=== PATIENT | male | born 1940 | race Caucasian/White ===

== ENCOUNTER 2018-12-04 09:45 | Day surgery (SDC) | payer OTHER ==
--- OUTSIDE RECORDS SUMMARY | 2018-12-04 09:56 | XMS REPORT | Continuity of Care Document ---
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 Congestive heart Active Problem 01/27/2017 [facility] COPD Active Problem 01/27/2017 [facility] Hyperlipidemia Active Problem 01/27/2017 [facility] HLD (<span Resolved Problem 01/27/2017 ID="[id number]" [facility],M >Confirmed</span> H [place] ) [facility] Hypertension Active Problem 01/27/2017 [facility] HTN (<span Active Problem 01/27/2017 ID="[id number]" [facility],M >Confirmed</span> H [place] ) [facility] Asbestosis Resolved Problem 01/27/2017 [facility] Emphysema lung Resolved Problem 01/27/2017 [facility] Shortness of Active Problem 01/27/2017 [facility] breath [facility] TIA Active Problem 01/27/2017 [facility] TIA (<span Resolved Problem 01/27/2017 ID="[id number]" [facility],M >Confirmed</span> H [place] ) [facility] NONRHEUMATIC Active [facility] AORTIC (VALVE) Medical STENOSIS Center Medications Medication Details Route Status Patient Ordering Order Source Instructions Provider Date Losartan 100 mg, 2 tab, Inactive 01/08/ [facility] Route: PO, Drug 2017 Medical form: TAB, Center Bedtime, Dosing Weight 102.727, kg, Start date: 01/07/17 21:00:00 CDT, Duration: 30 day, Stop date: 02/05/17 21:00:00 CDTNotes: (Same as: Miryam) 24 HR Nifedipine 30 mg, 1 tab, Inactive [place] 30 MG Extended Route: PO, Drug 2016 Medical Release Tablet form: ERTAB, Center Daily-12N, Dosing Weight 102.727, kg, Start date: 01/07/17 12:00:00 CDT, Duration: 30 day, Stop date: 02/05/17 12:00:00 CDT, ..Notes: (Same as: Adalat CC, Procardia XL) Give on empty stomach. Take 1 hour before or 2 hours after meal; "Avoid grapefruit and grapefruit juice". Do not crush 24 HR Nifedipine 30 mg=1 tab, Active [place] 30 MG Extended PO, Daily-12N, 2017 Medical Release Tablet .., # 30 tab, 1 Center Refill(s) predniSONE 5 mg 5 mg=1 tab, PO, Active [facility] oral tablet Daily, # 30 2017 Medical tab, 0 Center Refill(s) losartan 50 mg 100 mg=2 tab, Active [facility] oral tablet PO, Bedtime, # 2017 Medical 60 tab, 1 Center Refill(s) Furosemide 40 MG 40 mg=1 tab, Active [facility] Oral Tablet PO, BID, # 60 2017 Medical [Lasix] tab, 1 Center Refill(s) carvedilol 25 mg 25 mg=1 tab, Active [facility] oral tablet PO, Q12H, # 60 2017 Medical tab, 1 Center Refill(s) Potassium 20 mEq=1 tab, Active [place] Chloride 20 MEQ PO, Daily, # 30 2017 Medical Extended Release tab, 0 Center Tablet [K-Tab] Refill(s) Cardiac See Active [facility] Rehabilitation Instructions, 2017 Medical 3-5 x per week Center Eval and treat s/p TAVR, # 1 appl, 0 Refill(s) Cardiac See Inactive [facility] Rehabilitation Instructions, 2017 Medical 3-5 x per week Center Eval and treat s/p TAVR, # 1 appl, 0 Refill(s) Coreg 25 mg, 1 tab, Inactive [place] Route: PO, Drug 2017 Medical form: TAB, Center Q12H, Dosing Weight 102.727, kg, Start date: 01/07/17 9:00:00 CDT, Duration: 30 day, Stop date: 02/05/17 21:00:00 CDTNotes: Give with food. (Same As: Coreg) Prednisone 5 mg, 1 tab, Inactive [facility] Route: PO, Drug 2017 Medical form: TAB, Center Daily, Dosing Weight 102.727, kg, Start date: 01/07/17 9:00:00 CDT, Duration: 30 day, Stop date: 02/05/17 9:00:00 CDTNotes: Take with food. Furosemide 40 MG 40 mg, 1 tab, Inactive [facility] Oral Tablet Route: PO, Drug 2017 Medical [Lasix] form: TAB, BID, Center Dosing Weight 102.727, kg, Start date: 01/07/17 9:00:00 CDT, Duration: 30 day, Stop date: 02/05/17 17:00:00 CDTNotes: (Same as: Lasix) May cause GI upset. Give with food or milk. Coreg 12.5 mg, Route: Inactive [place] PO, ONCE, 2017 Medical Dosing Weight [place] 102.727, kg, Start date: 01/06/17 20:30:00 CDT, Stop date: 01/06/17 20:30:00 CDT 24 HR Nifedipine 90 mg, 1 tab, Inactive [place] 90 MG Extended Route: PO, Drug 2017 Medical Release Tablet form: ERTAB, Center ONCE, Dosing Weight 102.727, kg, Start date: 01/06/17 18:05:00 CDT, Stop date: 01/06/17 18:05:00 CDTNotes: (Same as: Adalat CC,Procardia XL) "Do Not Crush" "Avoid grapefruit and grapefruit juice" 24 HR Nifedipine 90 mg, 1 tab, No Longer [place] 90 MG Extended Route: PO, Drug Active 2017 Medical Release Tablet form: ERTAB, Center Daily, Dosing Weight 102.727, kg, Start date: 01/06/17 9:00:00 CDT, Duration: 30 day, Stop date: 02/04/17 9:00:00 CDTNotes: (Same as: Adalat CC,Procardia XL) "Do Not Crush" "Avoid grapefruit and grapefruit juice" Hydralazine 25 mg, 1 tab, Inactive [place] Hydrochloride 25 Route: PO, Drug 2017 Medical MG Oral Tablet form: TAB, Center ONCE, Dosing Weight 102.727, kg, Start date: 01/06/17 2:35:00 CDT, Stop date: 01/06/17 2:35:00 CDTNotes: (Same as: Apresoline) May interfere w/enteral feedings Take With Food. Losartan 50 mg, 1 tab, No Longer [place] Route: PO, Drug Active 2016 Medical form: TAB, Center ONCE, Dosing Weight 102.727, kg, Start date: 01/05/17 23:02:00 CDT, Stop date: 01/05/17 23:02:00 CDTNotes: (Same as: Miryam) furosemide 80 mg 80 mg=1 tab, No Longer [facility] oral tablet PO, BID, 0 Active 2016 Medical Refill(s) [place] bacitracin-polym 1 appl, Route: Inactive [facility] yxin B topical TOP, ONCE, Drug 2016 Medical form: OINT, [place] Start date: 01/05/17 17:00:00 CDT, Stop date: 01/05/17 17:00:00 CDTNotes: (Same As: Polysporin) Lasix 40 mg, 4 mL, No Longer [facility] Route: IV, Drug Active 2016 Medical form: INJ, BID, Center Dosing Weight 102.727, kg, Start date: 01/05/17 17:00:00 CDT, Duration: 30 day, Stop date: 02/04/17 9:00:00 CDTNotes: (Same as: Lasix) MEDICATION WASTE Product Size: 40 mg Product Wasted: ___ mg Neosporin 1 appl, Route: Inactive [facility] TOP, ONCE, Drug 2016 Medical form: OINT, Center Start date: 01/05/17 16:43:00 CDT, Stop date: 01/05/17 16:43:00 CDT Savaysa 30 mg, 1 tab, No Longer [place] Route: PO, Drug Active 2016 Medical form: TAB, Center Daily, Dosing Weight 102.727, kg, Start date: 01/05/17 12:53:00 CDT, Duration: 30 day, Stop date: 02/04/17 9:00:00 CDT, Patient's Own Meds Amlodipine 10 mg, 1 tab, No Longer [place] Route: PO, Drug Active 2016 Medical form: TAB, Center Daily, Dosing Weight 102.727, kg, Start date: 01/05/17 9:00:00 CDT, Duration: 30 day, Stop date: 02/03/17 9:00:00 CDTNotes: (Same as: Norvasc) Prednisone 10 mg, 1 tab, No Longer [place] Route: PO, Drug Active 2016 Medical form: TAB, Center Daily, Dosing Weight 102.727, kg, Start date: 01/05/17 9:00:00 CDT, Duration: 30 day, Stop date: 02/03/17 9:00:00 CDTNotes: (Same as: PredniSONE) Take with food. Lasix 20 mg, 2 mL, No Longer [place] Route: IV, Drug Active 2016 Medical form: INJ, BID, Center Dosing Weight 102.727, kg, Start date: 01/04/17 17:00:00 CDT, Duration: 30 day, Stop date: 02/03/17 9:00:00 CDTNotes: (Same as: Lasix) Calcium 2 gm, 20 mL, No Longer [place] Gluconate Route: IVPB, Active 2016 Medical PRN, Dosing Center Weight 102.727, kg, PRN Abnormal Lab Result, For NON-ICU Patients Only., Start date: 01/04/17 13:51:00 CDT, Duration: 30 day, Stop date: 02/03/17 13:50:00 CDTNotes: WASTE: F/P - Sink; E - Municipal Trash Bin Magnesium Oxide 800 mg, 2 tab, No Longer [place] Route: PO, Drug Active 2016 Medical form: TAB, PRN, Center Dosing Weight 102.727, kg, PRN Abnormal Lab Result, For NON-ICU Patients Only., Start date: 01/04/17 13:51:00 CDT, Duration: 30 day, Stop date: 02/03/17 13:50:00 CDTNotes: (Same as: Mag-Ox 400) Magnesium oxide [id number] elemental magnesium Dose=____mg magnesium oxide (___mg elemental magnesium) Magnesium 2 gm, 50 mL, No Longer [place] Sulfate Route: IVPB, Active 2016 Medical Drug form: INJ, Center PRN, Dosing Weight 102.727, kg, PRN Abnormal Lab Result, For NON-ICU Patients Only., Start date: 01/04/17 13:51:00 CDT, Duration: 30 day, Stop date: 02/03/17 13:50:00 CDTNotes: WASTE: F/P - Sink; E - Municipal Trash Bin sodium phosphate 30 mmol, 10 mL, No Longer [place] + sodium Route: IVPB, Active 2016 Medical chloride 0.9% PRN, Dosing Center INJ 250 mL Weight 102.727, kg, PRN Abnormal Lab Result, For NON-ICU Patients Only., Start date: 01/04/17 13:51:00 CDT, Duration: 30 day, Stop date: 02/03/17 13:50:00 CDT potassium 30 mmol, 10 mL, No Longer [place] phosphate + Route: IVPB, Active 2016 Medical sodium chloride PRN, Dosing Center 0.9% INJ 250 mL Weight 102.727, kg, PRN Abnormal Lab Result, For NON-ICU Patients Only., Start date: 01/04/17 13:51:00 CDT, Duration: 30 day, Stop date: 02/03/17 13:50:00 CDTNotes: (Same as: K Phosphate.) 1 mMol phoshate has 1.47 mEq potassium Infuse over 4 hours potassium 2 pkt, Route: No Longer [place] phosphate-sodium PO, Drug Form: Active 2016 Medical phosphate 250 PDR/REC, Dosing Center mg-280 mg-160 mg Weight 102.727, oral powder for kg, PRN, PRN reconstitution Abnormal Lab Result, For NON-ICU Patients Only, Start date: 01/04/17 13:51:00 CDT, Duration: 30 day, Stop date: 02/03/17 13:50:00 CDTNotes: (Same as: Phos-NaK) Each 1.5 gm pkt has 250mg phosphorous. Mix w/2.5oz water and stir. potassium 10 mEq, 50 mL, No Longer [place] chloride Route: IVPB, Active 2017 Medical Drug form: INJ, Center PRN, Dosing Weight 102.727, kg, PRN Abnormal Lab Result, For NON-ICU Patients Only, Start date: 01/04/17 13:51:00 CDT, Duration: 30 day, Stop date: 02/03/17 13:50:00 CDTNotes: (Same as: KCL) Infuse over 2 hours. edoxaban 30 mg, Route: Inactive [place] PO, Drug form: 2017 Medical TAB, Daily, Center Dosing Weight 102.727, kg, CrCl 15-50 mL/min, Start date: 01/04/17 13:32:00 CDT, Duration: 30 day, Stop date: 02/03/17 9:00:00 CDT Amlodipine 5 mg, 1 tab, Inactive [place] Route: PO, Drug 2016 Medical form: TAB, Center ONCE, Dosing Weight 102.727, kg, Start date: 01/04/17 11:17:00 CDT, Stop date: 01/04/17 11:17:00 CDTNotes: (Same as: Norvasc) Lasix 20 mg, 2 mL, Inactive [place] Route: IV, Drug 2016 Medical form: INJ, Center Daily, Dosing Weight 102.727, kg, Priority: NOW, Start date: 01/04/17 10:02:00 CDT, Duration: 30 day, Stop date: 02/03/17 9:00:00 CDTNotes: (Same as: Lasix) Lasix 20 mg, 2 mL, Inactive [place] Route: IVP, 2017 Medical Drug form: INJ, Center ONCE, Dosing Weight 102.727, kg, Start date: 01/04/17 9:43:00 CDT, Stop date: 01/04/17 9:43:00 CDTNotes: (Same as: Lasix) Furosemide 40 MG 40 mg, 1 tab, Inactive [place] Oral Tablet Route: PO, Drug 2016 Medical [Lasix] form: TAB, BID, Center Dosing Weight 102.727, kg, Start date: 01/04/17 9:00:00 CDT, Duration: 30 day, Stop date: 02/02/17 17:00:00 CDTNotes: (Same as: Lasix) May cause GI upset. Give with food or milk. Symbicort 2 inhalation, No Longer [facility] 160/4.5 Route: Active 2016 Medical inhalation INHALATION, [place] aerosol with Drug Form: adapter AERO/A, Dosing Weight 102.727, kg, BID, Start date: 01/04/17 9:00:00 CDT, Duration: 30 day, Stop date: 02/02/17 17:00:00 CDTNotes: (Same as: Symbicort) WASTE: Aerosol - Return to Pharmacy Prednisone 20 mg, 1 tab, Inactive [place] Route: PO, Drug 2016 Medical form: TAB, Center Daily, Dosing Weight 102.727, kg, Start date: 01/04/17 9:00:00 CDT, Duration: 30 day, Stop date: 02/02/17 9:00:00 CDTNotes: Take with food. pantoprazole 40 mg, 1 tab, No Longer [facility] Route: PO, Drug Active 2016 Medical form: ECTAB, Center Daily, Dosing Weight 102.727, kg, Start date: 01/04/17 9:00:00 CDT, Duration: 30 day, Stop date: 02/02/17 9:00:00 CDTNotes: Tablet should not be chewed or crushed. (Same as: Protonix) POLYETHYLENE 17 gm, 1 pkt, No Longer [place] GLYCOL 3350 Route: PO, Drug Active 2016 Medical form: PWDR, Center Daily, Dosing Weight 102.727, kg, Start date: 01/04/17 9:00:00 CDT, Duration: 30 day, Stop date: 02/02/17 9:00:00 CDTNotes: Dissolve in 8 oz of water or juice. (Same as: Miralax) aspirin 81 mg 81 mg, 1 tab, No Longer [place] tablet, enteric Route: PO, Drug Active 2016 Medical coated form: ECTAB, Center Daily, Dosing Weight 102.727, kg, Start date: 01/04/17 9:00:00 CDT, Duration: 30 day, Stop date: 02/02/17 9:00:00 CDTNotes: Do not crush or chew. (Same As: Ecotrin) Folic Acid 1 mg, 1 tab, Inactive [place] Route: PO, Drug 2016 Medical form: TAB, Center Daily, Dosing Weight 102.727, kg, Start date: 01/04/17 9:00:00 CDT, Duration: 5 day, Stop date: 01/08/17 9:00:00 CDTNotes: (Same as: Folvite) Thiamine 100 mg, 1 tab, Inactive [place] Route: PO, Drug 2016 Medical form: TAB, Center Daily, Dosing Weight 102.727, kg, Start date: 01/04/17 9:00:00 CDT, Duration: 5 day, Stop date: 01/08/17 9:00:00 CDTNotes: (Same As: Vitamin B1) multivitamin 1 tab, Route: Inactive [place] PO, Drug Form: 2017 Medical TAB, Dosing Center Weight 102.727, kg, Daily, Start date: 01/04/17 9:00:00 CDT, Duration: 5 day, Stop date: 01/08/17 9:00:00 CDTNotes: (Same as:Thera) WASTE: F/P - Black; E - Municipal Trash Bin Take with food. Benicar 40 mg, 2 tab, No Longer [place] Route: PO, Drug Active 2016 Medical form: TAB, Center Daily, Dosing Weight 102.727, kg, Start date: 01/04/17 9:00:00 CDT, Duration: 30 day, Stop date: 02/02/17 9:00:00 CDT Amlodipine 5 mg, 1 tab, Inactive [place] Route: PO, Drug 2016 Medical form: TAB, Center Daily, Dosing Weight 102.727, kg, Start date: 01/04/17 9:00:00 CDT, Duration: 30 day, Stop date: 02/02/17 9:00:00 CDTNotes: (Same as: Norvasc) Plavix 75 mg, 1 tab, Inactive [place] Route: PO, Drug 2016 Medical form: TAB, Center Daily, Dosing Weight 102.727, kg, Start date: 01/04/17 9:00:00 CDT, Duration: 30 day, Stop date: 02/02/17 9:00:00 CDTNotes: (Same As: Plavix) Losartan 50 mg, 1 tab, No Longer [place] Route: PO, Drug Active 2016 Medical form: TAB, Center Daily, Dosing Weight 102.727, kg, Start date: 01/04/17 9:00:00 CDT, Duration: 30 day, Stop date: 02/02/17 9:00:00 CDTNotes: (Same as: Miryam) Cefazolin 1 gm, Route: Inactive [place] IVPB, Drug 2016 Medical form: PDR/INJ, Center Q12H, Dosing Weight 102.727, kg, Start date: 01/04/17 0:00:00 CDT, Duration: 1 doses or times, Stop date: 01/04/17 0:00:00 CDT, ABX Indication: Surgical ProphylaxisNote s: (Same As: Jada Chandler) MEDICATION WASTE Product Size: 1000 mg Product Wasted: _0_ mg carvedilol 12.5 mg, 1 tab, No Longer [place] Route: PO, Drug Active 2016 Medical form: TAB, Center Q12H, Dosing Weight 102.727, kg, Start date: 01/03/17 21:00:00 CDT, Duration: 30 day, Stop date: 02/02/17 9:00:00 CDTNotes: Give with food. (Same As: Coreg) atorvastatin 80 mg, 1 tab, No Longer [place] Route: PO, Drug Active 2016 Medical form: TAB, Center Bedtime, Dosing Weight 102.727, kg, Start date: 01/03/17 21:00:00 CDT, Duration: 30 day, Stop date: 02/01/17 21:00:00 CDTNotes: Same as Lipitor Docusate 100 mg, 1 cap, No Longer [place] Route: PO, Drug Active 2016 Medical form: CAP, Center Q12H, Dosing Weight 102.727, kg, Start date: 01/03/17 21:00:00 CDT, Duration: 30 day, Stop date: 02/02/17 9:00:00 CDTNotes: (Same as: Colace) (Do Not Crush) heparin 5,000 unit, 1 No Longer [place] mL, Route: Active 2017 Medical SUB-Q, Drug Center form: INJ, Q12H, Dosing Weight 102.727, kg, Start date: 01/03/17 21:00:00 CDT, Duration: 30 day, Stop date: 02/02/17 9:00:00 CDTNotes: porcine heparin Escitalopram 20 mg, 2 tab, No Longer [place] Route: PO, Drug Active 2016 Medical form: TAB, Center Bedtime, Dosing Weight 102.727, kg, Start date: 01/03/17 21:00:00 CDT, Duration: 30 day, Stop date: 02/01/17 21:00:00 CDTNotes: (Same as: Lexapro) Lorazepam 6 mg, 3 mL, No Longer [place] Route: IVP, Active 2016 Medical Drug form: INJ, Center Q2H, Dosing Weight 102.727, kg, PRN Other -See Comment, CIWA Score > 20, Start date: 01/03/17 20:15:00 CDT, Duration: 30 day, Stop date: 02/02/17 20:14:00 CDTNotes: (Same as: Ativan) Losartan 100 mg, 2 tab, No Longer [place] Route: PO, Drug Active 2016 Medical form: TAB, Center Daily, Dosing Weight 102.727, kg, Start date: 01/03/17 19:29:00 CDT, Stop date: 02/02/17 9:00:00 CDTNotes: (Same as: Cozaar) Lasix 40 mg, 4 mL, Inactive [place] Route: IVP, 2016 Medical Drug form: INJ, Center ONCE, Dosing Weight 102.727, kg, Start date: 01/03/17 19:00:00 CDT, Stop date: 01/03/17 19:00:00 CDTNotes: (Same as: Lasix) MEDICATION WASTE Product Size: 40 mg Product Wasted: __0_ mg potassium 2 pkt, Route: No Longer [place] phosphate-sodium PO, Drug Form: Active 2017 Medical phosphate 250 PDR/REC, Dosing Center mg-280 mg-160 mg Weight 102.727, oral powder for kg, PRN, PRN reconstitution Abnormal Lab Result, FOR ICU USE ONLY, Start date: 01/03/17 17:41:00 CDT, Duration: 30 day, Stop date: 02/02/17 17:40:00 CDTNotes: (Same as: Phos-NaK) Each 1.5 gm pkt has 250mg phosphorous. Mix w/2.5oz water and stir. Magnesium Oxide 800 mg, 2 tab, No Longer [place] Route: PO, Drug Active 2016 Medical form: TAB, PRN, Center Dosing Weight 102.727, kg, PRN Abnormal Lab Result, FOR ICU USE ONLY, Start date: 01/03/17 17:41:00 CDT, Duration: 30 day, Stop date: 02/02/17 17:40:00 CDTNotes: (Same as: Mag-Ox 400) Magnesium oxide [id number] elemental magnesium Dose=____mg magnesium oxide (___mg elemental magnesium) Calcium 500 mg, 1 tab, No Longer [place] Carbonate 500 MG Route: PO, Drug Active 2016 Medical Chewable Tablet form: CHEWTAB, Center PRN, Dosing Weight 102.727, kg, PRN Abnormal Lab Result, FOR ICU USE ONLY, Start date: 01/03/17 17:41:00 CDT, Duration: 30 day, Stop date: 02/02/17 17:40:00 CDTNotes: (Same As: Tums) Calcium Carbonate 500 rs=084 mg elemental calcium Dose= mg calcium carbonate ( mg elemental calcium) Magnesium 2 gm, 50 mL, No Longer [place] Sulfate Route: IVPB, Active 2016 Medical Drug form: INJ, Center PRN, Dosing Weight 102.727, kg, PRN Abnormal Lab Result, Start date: 01/03/17 17:41:00 CDT, Duration: 30 day, Stop date: 02/02/17 17:40:00 CDT, FOR ICU USE ONLYNotes: WASTE: F/P - Sink; E - Municipal Trash Bin potassium 30 mmol, 10 mL, No Longer [place] phosphate + Route: IVPB, Active 2016 Medical sodium chloride PRN, Dosing Center 0.9% INJ 250 mL Weight 102.727, kg, PRN Abnormal Lab Result, Start date: 01/03/17 17:41:00 CDT, Duration: 30 day, Stop date: 02/02/17 17:40:00 CDT, FOR ICU USE ONLYNotes: (Same as: K Phosphate.) 1 mMol phoshate has 1.47 mEq potassium Infuse over 4 hours sodium phosphate 45 mmol, 15 mL, No Longer [place] + sodium Route: IVPB, Active 2016 Medical chloride 0.9% PRN, Dosing Center INJ 250 mL Weight 102.727, kg, PRN Abnormal Lab Result, Start date: 01/03/17 17:41:00 CDT, Duration: 30 day, Stop date: 02/02/17 17:40:00 CDT, FOR ICU USE ONLY Calcium 1 gm, 10 mL, No Longer Glucon[place] Route: IVPB, Active 2016 Medical PRN, Dosing Center Weight 102.727, kg, PRN Abnormal Lab Result, Start date: 01/03/17 17:41:00 CDT, Duration: 30 day, Stop date: 02/02/17 17:40:00 CDT, FOR ICU USE ONLYNotes: WASTE: F/P - Sink; E - Municipal Trash Bin potassium 10 mEq, 50 mL, No Longer [place] chloride Route: IVPB, Active 2016 Medical Drug form: INJ, Center PRN, Dosing Weight 102.727, kg, PRN Abnormal Lab Result, Via peripheral line, Start date: 01/03/17 17:41:00 CDT, Duration: 30 day, Stop date: 02/02/17 17:40:00 CDT, FOR ICU USE ONLYNotes: (Same as: KCL) Infuse over 2 hours. Acetaminophen 1,000 mg, 100 No Longer [place] mL, Route: Active 2016 Medical IVPB, Drug Center form: INJ, ONCE, Dosing Weight 102.727, kg, PRN Pain Score 1-3, Start date: 01/03/17 13:49:00 CDTNotes: Infuse over 15 minutes Do not exceed 4gm/day of acetaminophen MEDICATION WASTE Product Size: 1000 mg Product Wasted: _0_ mg Nicardipine 40 mg, 200 mL, No Longer [place] Rate: Titrate, Active 2016 Medical Start Dose: 5 Center mg/hr, Titration: 2mg every 15 minutes PRN, Goal(s): maintain MAP 75-85 mmHg, Max Dose: 15mg/hr, Route: IV, Dosing Weight 102.727 kg, Total Volume: 200, Start date: 01/03/17 13:49:00 CDT, Duration: 30 day, S...Notes: Same as: Cardene Concentration: (0.2 mg /1 ml ) Ondansetron 4 mg, 2 mL, No Longer [place] Route: IVP, Active 2016 Medical Drug form: INJ, Center Q8H, Dosing Weight 102.727, kg, PRN Nausea & Vomiting, Start date: 01/03/17 13:49:00 CDT, Duration: 30 day, Stop date: 02/02/17 13:48:00 CDTNotes: (Same as: Zofrnelly) MEDICATION WASTE Product Size: 4 mg Product Wasted: _0_ mg pneumococcal 0.5 mL, Route: Inactive [place] capsular IM, Daily, 2017 Medical polysaccharide Start date: [place] type 1 vaccine / 01/03/17 pneumococcal 9:00:00 CDT, capsular Duration: 1 polysaccharide doses or times, type 10A vaccine Stop date: / pneumococcal 01/03/17 capsular 9:00:00 CDT polysaccharide type 11A vaccine / pneumococcal capsular polysaccharide type 12F vaccine / pneumococcal capsular polysacchar K-Amber 20 mEq, PO, No Longer [place] BID, 0 Active 2016 Medical Refill(s) [place] carvedilol 12.5 12.5 mg=1 tab, No Longer [place] mg oral tablet PO, Q12H, # 60 Active 2016 Medical tab, 0 Center Refill(s) atorvastatin 80 80 mg=1 tab, Active [place] mg oral tablet PO, Bedtime, # 2017 Medical 30 tab, 0 Center Refill(s) Savaysa 30 mg, PO, Active [facility] Daily, 0 2016 Medical Refill(s) Center Symbicort 2 puff, Active [facility] 160/4.5 INHALATION, 2017 Medical inhalation BID, 0 Center aerosol with Refill(s) adapter predniSONE 20 mg 20 mg=1 tab, No Longer [facility] oral tablet PO, Daily, 0 Active 2016 Medical Refill(s) Center Omeprazole PO, Daily, 0 No Longer [facility] Refill(s) Active 2017 [facility] Center Lovaza 2,000 mg=, PO, Active [facility] BID, 0 2016 Medical Refill(s) Center losartan 50 mg 50 mg=1 tab, No Longer [facility] oral tablet PO, Daily, # 30 Active 2016 Medical tab, 0 Center Refill(s) Sodium Chloride 250 mL, 250 Inactive [facility] 0.154 MEQ/ML ml/hr, Infuse 2017 Medical Injectable Over: 1 hr, Center Solution Route: IV, 250, Drug form: INJ, ONCALL, Priority: Routine, Dosing Weight 100 kg, Start date: 01/03/17 6:00:00 CDT, Duration: 1 doses or times Exparel 20 mL, Route: No Longer [facility] InFILtration(lo Active 2016 Medical jakob), Drug Center Form: INJ, Dosing Weight 100, kg, ONCALL, 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 Bunionectomy: 7 mL into the tissues surrounding the osteotomy and 1 mL into the subcutaneous tissue of the surgical site (total dose=8 mL [106 mg]) Hemorrhoidectom y: 30 mL (20 mL vial diluted with 10 mL NS) divided and administered as 6 injections of 5 mL each (total dose=30 mL [266 mg]) sodium chloride 250 mL, Rate: Inactive [facility]03[facility] Ji 0.9% INJ 250 mL freight caller for use 2017 Medical with blood Center product administration, Dosing Weight 100, kg, Route: IV, Total Volume: 250, Start Date: 01/03/17 5:51:00 CDT, Duration: 30 day, Stop date: 02/02/17 5:50:00 CDT, Replace Every: 24 hr Sodium Chloride 750 mL, Rate: Inactive [place] 0.154 MEQ/ML 75 ml/hr, 2016 Medical Injectable Infuse over: 10 Center Solution hr, Route: IV, Dosing Weight 100 kg, Total Volume: 750, Start date: 01/03/17 5:51:00 CDT, Duration: 24 hr, Stop date: 01/04/17 5:50:00 CDT Allergies, Adverse Reactions, Alerts Substance Category Reaction Severity Reaction Status Date Comments Source type Reported amitriptyline Assertion Drug Active allergy [facility] Immunizations Immunization Date Site Status Last Comments Source Given Updated pneumococcal Right completed Shae [facility] 23-valent 9 deltoid Medical vaccine Center,[facility] Results Order Name Results Value Reference Date Interpretation Comments Source Range PET CT PET CT Lung PET CT 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 The CT was utili Read by: Isaiah Jc MD for attenuation correction and anatomic correlation and not as an independent diagnostic study. Dictated Date/time: 01/24/17 14:40 Electronically Signed by: Isaiah Jc MD 01/24/17 15:04 FINAL REPORT BLOOD GLUCOSE: 107 mg/dl COMPARISON: CTA chest 12/17/2016 CLINICAL HISTORY: C34.12 Malignant neoplasm of upper lobe, left bronchus or lung - YLX=2578.64 mGy-cm, CTDIvol=12.59 mGy; FINDINGS: HEAD AND NECK: Evaluation of the oral cavity and oropharynx is limited due to streak artifact from dental work. There is mild cervical lymphadenopathy on the right just above the right angle of mandible . Maximum SUV is 3.7 on image 40. No other enlarged or FDG avid lymph nodes are noted in the neck. CHEST: Multiple subcentimeter lymph nodes are visualized in the anterior mediastinum without any significant increase in metabolic activity. Mild right hilar lymphadenopathy. Mild increase in FDG activity with maximum SUV of 3.0 on image 88. Corresponding to the 10 mm nodule in the left upper lobe, no significant increase in metabolic activity is noted. Maximum SUV is 1.6 on image 82. No other focus of abnormal activity is noted in the thorax. Cardiomegaly. ABDOMEN AND PELVIS: Extensive aortoiliac atherosclerotic disease with ectasia and mild aneurysmal dilation. Maximum caliber in the infrarenal abdominal aorta is 3.1 cm. Physiologic activity is visualize d in the solid organs, genitourinary tract and gastrointestinal tract. A few small lymph nodes and stranding of the mesenteric fat is noted in the right inguinal region. Maximum SUV is 4.0 on image 225. SKELETON: No abnormal activity is visualized IMPRESSION: No significant abnormal increase in metabolic activity is noted corresponding to the left upper lobe nodule. However, given the morphology of this lesion, unless previous imaging can be made available [facility] document stability of this finding, biopsy may still be appropriate. At a minimum, repeat CT scan of chest is recommended in 3 months. There is mild right cervical lymphadenopathy. Mild right hilar lymphadenopathy and a few small FDG avid lymph nodes are noted in the right groin. These findings are somewhat nonspecific but raise the po ssibility of lymphoma. Correlation with other clinical data is recommended. Consideration should be given to further evaluation with contrast CT of neck given the limitation of the current study due to metallic streak artifact. 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 [id number] BLOOD BANK Antibody Negative 01/07 [facility] RESULTS Scrn /2016 [facility] (01/07/17 2:11 AM) Center BLOOD BANK ABO/Rh O POS 01/07 [facility] RESULTS /2016 [facility] Center CHEM PANEL Phosphorus 3.6 mg/dL 2.5 - 4.5 01/07 /2016 [facility] Center CHEM PANEL Magnesium 2.0 mg/dL 1.8 - 2.4 01/07 [facility] Lvl /2016 [facility] CHEM PANEL Creatinine 1.05 mg/dL 0.50 - 01/07 [facility] Lvl 1.40 /2016 [facility] CHEM PANEL Sodium Lvl 138 meq/L 135 - 145 01/07 [facility] CHEM PANEL Glucose Lvl 114 mg/dL 70 - 99 01/07 [facility] CHEM PANEL BUN 22 mg/dL 7 - 22 01/07 [facility] CHEM PANEL Potassium 3.7 meq/L 3.5 - 5.1 01/07 [facility] Lvl [facility] CHEM PANEL Chloride Lvl 104 meq/L 95 - 109 01/07 [facility] CHEM PANEL CO2 28 meq/L 24 - 32 01/07 [facility] CHEM PANEL Calcium Lvl 8.7 mg/dL 8.5 - 10.5 01/07 [facility] CHEM PANEL AGAP 9.7 meq/L 10.0 - 01/[address] [facility] CHEM PANEL eGFR 70 01/07 Result Comment: The eGFR is calculated using the CKD-EPI formula. In most young, healthy individuals the eGFR will be >90 mL/ min/1.73m2. The eGFR declines with age. An eGFR of 60-89 may be normal in [facility] mL/min/1. some populations, particularly the elderly, for whom the CKD-EPI formula has not been extensively validated. Use of the eGFR is not recommended in the following populations: [address] Individuals with unstable creatinine concentrations, including patients and those with serious co-morbid conditions. Patients with extremes in muscle mass or diet. The data above are obtained from the National Kidney Disease Education Program (NKDEP) which additionally recommends that when the eGFR is used in patients with extremes of body mass index for purposes of drug dosing, the eGFR should be multiplied by the estimated BMI. HEMATOLOGY Monocytes # 0.9 K/CMM 0.0 - 0.8 01/07 [facility] HEMATOLOGY Lymphocytes 0.9 K/CMM 1.0 - 5.5 01/07 [facility] HEMATOLOGY Basophils # 0.1 K/CMM 0.0 - 0.2 01/07 [facility] HEMATOLOGY Eosinophils 0.2 K/CMM 0.0 - 0.5 01/07 [facility] HEMATOLOGY Monocytes 9.0 % 2.0 - 12.0 01/07 [facility] HEMATOLOGY Lymphocytes 8.3 % 20.0 - 01/[address] [place] [address] [facility] HEMATOLOGY Basophils 0.8 % 0.0 - 1.0 01/07 [facility] HEMATOLOGY Eosinophils 1.6 % 0.0 - 4.0 01/07 [facility] HEMATOLOGY Segs-Bands # 8.4 K/CMM 1.5 - 8.1 01/07 [facility] HEMATOLOGY Segs 80.3 % 45.0 - 01/[address] [facility] HEMATOLOGY MPV 9.3 fL 7.4 - 10.4 01/07 [facility] HEMATOLOGY MCV 85.7 fL 80.0 - 01/[address] [facility] HEMATOLOGY MCHC 32.8 g/dL 32.0 - 01/[address] [facility] HEMATOLOGY MCH 28.2 pg 27.0 - 01/[address] [facility] HEMATOLOGY Platelet 95 K/CMM 133 - 450 01/07 [facility] HEMATOLOGY RDW 17.8 % 11.5 - 01/[address] [facility] HEMATOLOGY WBC 10.5 K/CMM 3.7 - 10.4 01/07 [facility] HEMATOLOGY Hgb 10.4 g/dL 14.0 - 01/[address] [facility] HEMATOLOGY RBC 3.70 M/CMM 4.70 - 01/[address] [facility] HEMATOLOGY Hct 31.7 % 42.0 - 01/[address] [facility] PARATHYROI Ca Norm WB 1.06 1.05 - 01/07 [facility] D PROFILE mMol/L 1. [facility] PARATHYROI Ca Ion WB 1.04 1.05 - 01/07 [facility] D PROFILE mMol/L . [facility] CHEM PANEL Phosphorus 2.1 mg/dL 2.5 - 4.5 01/06 [facility] CHEM PANEL eGFR 84 01/06 Result Comment: The eGFR is calculated using the CKD-EPI formula. In most young, healthy individuals the eGFR will be >90 mL/ min/1.73m2. The eGFR declines with age. An eGFR of 60-89 may be normal in [facility] mL/min/1. some populations, particularly the elderly, for whom the CKD-EPI formula has not been extensively validated. Use of the eGFR is not recommended in the following populations: [address] Individuals with unstable creatinine concentrations, including patients and those with serious co-morbid conditions. Patients with extremes in muscle mass or diet. The data above are obtained from the National Kidney Disease Education Program (NKDEP) which additionally recommends that when the eGFR is used in patients with extremes of body mass index for purposes of drug dosing, the eGFR should be multiplied by the estimated BMI. CHEM PANEL Calcium Lvl 8.5 mg/dL 8.5 - 10.5 01/06 [facility] CHEM PANEL Glucose Lvl 86 mg/dL 70 - 99 01/06 [facility] CHEM PANEL BUN 16 mg/dL 7 - 22 01/[address] [facility] [facility] CHEM PANEL Creatinine 0.90 mg/dL 0.50 - 01/06 [facility] Lvl 1.40 [facility] CHEM PANEL Sodium Lvl 143 meq/L 135 - 145 01/[address] CHEM PANEL Potassium 3.6 meq/L 3.5 - 5.1 01/[address] [facility] CHEM PANEL Chloride Lvl 107 meq/L 95 - 109 01/[address] [place] [address] CHEM PANEL AGAP 12.6 meq/L 10.0 - [address] [facility] CHEM PANEL CO2 27 meq/L 24 - 32 01/[address] [place] [address] CHEM PANEL Magnesium 2.2 mg/dL 1.8 - 2.4 01/06 [facility] HEMATOLOGY PTT 37.0 s 22.9 - 01/[address] [place] [address] [facility] HEMATOLOGY INR 1.24 0.85 - [address] [place] [address] [facility] HEMATOLOGY PT 15.9 s 12.0 - [address] [place] [address] [facility] HEMATOLOGY Lymphocytes 7.2 % 20.0 - [address] [place] [address] [facility] HEMATOLOGY Lymphocytes 0.8 K/CMM 1.0 - 5.5 07 [facility] # [facility] HEMATOLOGY Segs-Bands # 9.0 K/CMM 1.5 - 8.1 01/06 [facility] HEMATOLOGY Basophils 0.4 % 0.0 - 1.0 01/06 [facility] HEMATOLOGY Eosinophils 1.5 % 0.0 - 4.0 07/ [facility] HEMATOLOGY Monocytes 8.9 % 2.0 - 12.0 01/06 [facility] HEMATOLOGY Segs 82.0 % 45.0 - 07 [facility] [address] [facility] HEMATOLOGY Eosinophils 0.2 K/CMM 0.0 - 0.5 07 [facility] # /2016 [facility] HEMATOLOGY Monocytes # 1.0 K/CMM 0.0 - 0.8 01/06 [facility] HEMATOLOGY MPV 9.1 fL 7.4 - 10.4 01/06 [facility] HEMATOLOGY Platelet 87 K/CMM 133 - 450 01/06 [facility] HEMATOLOGY MCH 27.8 pg 27.0 - 01/06 [facility] [address] [facility] HEMATOLOGY RDW 17.9 % 11.5 - 07 [facility] [address] [facility] HEMATOLOGY MCHC 32.7 g/dL 32.0 - 01/06 [facility] [address] [facility] HEMATOLOGY Hgb 10.6 g/dL 14.0 - 01/06 [facility] [address] [facility] HEMATOLOGY RBC 3.79 M/CMM 4.70 - 01/06 [facility] [address] [facility] HEMATOLOGY MCV 85.1 fL 80.0 - 01/06 [facility] [address] [facility] HEMATOLOGY Hct 32.3 % 42.0 - 01/06 [facility] [address] [facility] HEMATOLOGY WBC 11.0 K/CMM 3.7 - 10.4 01/06 [facility] PARATHYROI Ca Ion WB 0.98 1.05 - 01/06 [facility] D PROFILE mMol/L 1. [facility] PARATHYROI Ca Norm WB 0.99 1.05 - 01/06 [facility] D PROFILE mMol/L 1. [facility] CHEM PANEL Phosphorus 2.9 mg/dL 2.5 - 4.5 01/06 [facility] CHEM PANEL Magnesium 2.1 mg/dL 1.8 - 2.4 01/06 [facility] Lvl [facility] ELECTROLYT AGAP 12.8 meq/L 10.0 - 01/06 [facility] ES 20.0 [facility] ELECTROLYT BUN 21 mg/dL 7 - 22 01/06 [facility] ELECTROLYT Glucose Lvl 129 mg/dL 70 - 99 01/06 [facility] ELECTROLYT Creatinine 1.06 mg/dL 0.50 - 01/06 [facility] Lvl 1.40 [facility] ELECTROLYT Sodium Lvl 140 meq/L 135 - 145 01/06 [facility] ELECTROLYT Chloride Lvl 104 meq/L 95 - 109 01/06 [facility] ELECTROLYT CO2 27 meq/L 24 - 32 01/06 [facility] ELECTROLYT Potassium 3.8 meq/L 3.5 - 5.1 01/06 [facility] Lvl [facility] ELECTROLYT eGFR 69 01/06 Result Comment: The eGFR is calculated using the CKD-EPI formula. In most young, healthy individuals the eGFR will be >90 mL/ min/1.73m2. The eGFR declines with age. An eGFR of 60-89 may be normal in [facility] mL/min/1. some populations, particularly the elderly, for whom the CKD-EPI formula has not been extensively validated. Use of the eGFR is not recommended in the following populations: [address] Individuals with unstable creatinine concentrations, including patients and those with serious co-morbid conditions. Patients with extremes in muscle mass or diet. The data above are obtained from the National Kidney Disease Education Program (NKDEP) which additionally recommends that when the eGFR is used in patients with extremes of body mass index for purposes of drug dosing, the eGFR should be multiplied by the estimated BMI. ELECTROLYT Calcium Lvl 8.5 mg/dL 8.5 - 10.5 01/06 [facility] PARATHYROI Ca Ion WB 1.04 1.05 - 01/06 [facility] D PROFILE mMol/L . [facility] PARATHYROI Ca Norm WB 1.04 1.05 - 01/06 [facility] D PROFILE mMol/L . [facility] HEMATOLOGY MPV 9.3 fL 7.4 - 10.4 01/05 [facility] HEMATOLOGY Hgb 10.5 g/dL 14.0 - 01/[address] [place] [address] [facility] HEMATOLOGY RBC 3.78 M/CMM 4.70 - 07/ [place] 6.10 [facility] HEMATOLOGY WBC 11.4 K/CMM 3.7 - 10.4 07/ /2016 [facility] HEMATOLOGY MCH 27.8 pg 27.0 - [address] [place] [address] [facility] HEMATOLOGY RDW 17.6 % 11.5 - 07 [place] 14.5 /2016 [facility] HEMATOLOGY MCHC 32.8 g/dL 32.0 - 0708 [place] 36.0 /2016 [facility] HEMATOLOGY Platelet 92 K/CMM 133 - [address] [facility] HEMATOLOGY Hct 32.1 % 42.0 - 07/08 [place] 54.0 /2016 [facility] HEMATOLOGY MCV 84.8 fL 80.0 - 07 [place] 94.0 /2016 [facility] HEMATOLOGY PT 15.9 s 12.0 - 0708 [facility] [address] [facility] HEMATOLOGY INR 1.24 0.85 - [address] [place] [address] [facility] HEMATOLOGY PTT 34.7 s 22.9 - 08 [place] 35.8 /2016 [facility] HEMATOLOGY Eosinophils 1.0 % 0.0 - 4.0 / [facility] HEMATOLOGY Monocytes 9.0 % 2.0 - 12.0 / [facility] HEMATOLOGY Segs 82.9 % 45.0 - 07/08 [facility] [address] [facility] HEMATOLOGY Eosinophils 0.1 K/CMM 0.0 - 0.5 / [facility] /2016 [facility] HEMATOLOGY Lymphocytes 6.7 % 20.0 - 07/08 [place] 40.0 /2016 [facility] HEMATOLOGY Monocytes # 1.0 K/CMM 0.0 - 0.8 /08 [facility] HEMATOLOGY Lymphocytes 0.8 K/CMM 1.0 - 5.5 [address] [facility] HEMATOLOGY Segs-Bands # 9.4 K/CMM 1.5 - 8.1 01/05 [facility] HEMATOLOGY Basophils 0.4 % 0.0 - 1.0 01/05 [facility] Chest Chest 1view EXAM: XR CHEST 1 VIEW 01/04 - [facility] 1view DX [facility] DATE: 01/04/2017 8:06 AM CDT Read by: Mike Reese MD Dictated Date/time: 01/04/17 10:20 Electronically Signed by: Mike Reese MD 01/04/17 10:20 FINAL REPORT INDICATION: hypoxemia - n/a COMPARISON: 01/03/2017 TECHNIQUE: AP chest IMPRESSION: 1. Cardiomediastinal silhouette is enlarged, unchanged. Aortic atherosclerotic disease. Status post TAVR. 2. Prominent lung reticulations again seen with peribronchial cuffing suggestive of pulmonary edema. Superimposed infection cannot be excluded. Findings are slightly improved compared to previous study. 3. Trace bilateral pleural effusions. 4. Osseous structures are stable. HEMATOLOGY Basophils # 0.1 K/CMM 0.0 - 0.2 01/04 /2016 [facility] HEMATOLOGY PTT 27.9 s 22.9 - 01/04 [facility] 35.8 /2016 [facility] HEMATOLOGY INR 1.19 0.85 - 01/04 [facility] [address].17 [facility] HEMATOLOGY PT 15.4 s 12.0 - 01/04 [facility] [address] [facility] HEMATOLOGY Basophils # 0.1 K/CMM 0.0 - 0.2 01/[address] Chest Chest 1view EXAM: XR CHEST 1 VIEW 01/03 - [place] [id number] DX DX /2016 [facility] DATE: 01/03/2017 3:31 PM CDT Read by: Mike Reese MD Dictated Date/time: 01/03/17 16:38 Electronically Signed by: Mike Reese MD 01/03/17 16:40 FINAL REPORT INDICATION: s/p TAVR - N/A COMPARISON: January 03, 2017 at 9:41 AM TECHNIQUE: AP chest IMPRESSION: 1. Cardiomediastinal silhouette is enlarged, unchanged. Aortic atherosclerotic disease. Status post TAVR. 2. Prominent lung reticulations again seen with peribronchial cuffing suggestive of pulmonary edema. Superimposed infection cannot be excluded. 3. Trace bilateral pleural effusions. 4. Osseous structures are stable. BLOOD BANK Antibody Negative 01/03 [facility] RESULTS Scrn [facility] (01/03/17 5:54 AM) [place] BLOOD BANK ABO/Rh O POS 01/03 [facility] RESULTS /2016 [facility] CHEM PANEL Albumin Lvl 4.1 g/dL 3.5 - 5.0 01/03 [place] /2016 [facility] CHEM PANEL AST 25 unit/L 0 - 37 01/03 [facility] /[address] [place] [address] CHEM PANEL Bili Total 0.8 mg/dL 0.2 - 1.3 01/[address] CHEM PANEL Total 7.3 g/dL 6.4 - 8.4 01/03 [facility] Protein [facility] CHEM PANEL Alk Phos 62 unit/L 39 - 136 01/[address] CHEM PANEL ALT 39 unit/L 0 - 65 01/[address] CHEM PANEL B/C Ratio 28 6 - 25 01/[address] CHEM PANEL Globulin 3.2 g/dL 2.7 - 4.2 01/[address] CHEM PANEL A/G Ratio 1.3 0.7 - 1.6 01/[address] BLOOD BANK FFP product Product available 01/03 [facility] RESULTS [facility] (01/03/17 5:51 AM) [place] BLOOD BANK RBC product Product available 01/03 [facility] (01/03/17 5:51 AM) [place] Chest Chest 1view EXAM: XR CHEST 1 VIEW 01/03 - [facility] 1view DX - [facility] This report was dictated by a City Marshal/Fellow. I have personally reviewed the images as Center well as the Resident's interpretation and agree with the findings. DATE: 01/03/2017 5:51 AM CDT Read by: Doni Jean MD Resident: Doni Jaen MD Dictated Date/time: 01/03/17 10:02 Electronically Signed by: Jean Ruth MD 01/03/17 18:02 FINAL REPORT INDICATION: Heart failure - TAVR COMPARISON: 11/19/2011 TECHNIQUE: AP chest FINDINGS: Lines, tubes and hardware: None. Lungs and pleura: No focal consolidation, pleural effusion, or pneumothorax is identified. Mild pulmonary edema is present. Heart and mediastinum: The heart is mildly enlarged, unchanged. The aorta is mildly tortuous and calcified. The mediastinal contours are normal. Bones: No acute bony abnormality is identified. IMPRESSION: Mild interstitial pulmonary edema. Unchanged prominent cardiac silhouette. CHEM PANEL POC 0.9 mg/dL 0.5 - 1.4 12/[address] CHEM PANEL eGFR 84 12/17 Result Comment: The eGFR is calculated using the CKD-EPI formula. In most young, healthy individuals the eGFR will be >90 mL/ min/1.73m2. The eGFR declines with age. An eGFR of 60-89 may be normal in [facility] mL/min/1. some populations, particularly the elderly, for whom the CKD-EPI formula has not been extensively validated. Use of the eGFR is not recommended in the following populations: [facility] Individuals with unstable creatinine concentrations, including patients and those with serious co-morbid conditions. Patients with extremes in muscle mass or diet. The data above are obtained from the National Kidney Disease Education Program (NKDEP) which additionally recommends that when the eGFR is used in patients with extremes of body mass index for purposes of drug dosing, the eGFR should be multiplied by the estimated BMI. Chest/Abd/ Chest/Abd/Pe EXAM: CTA CHEST WITH AND WITHOUT CONTRAST 12/17 - [facility] Pelvis lvis TAVR /2016 - Medical TAVR CTA CTA EXAM: CTA ABDOMEN AND PELVIS WITH AND WITHOUT CONTRAST Center Read by: Raymundo Casper Dictated Date/time: 12/17/16 17:21 DATE: 12/17/2016 1:08 PM CDT Electronically Signed by: Raymundo Casper 12/17/16 19:05 FINAL REPORT INDICATION: - aortic stenosis ADDITIONAL INFORMATION: None. COMPARISON: None. TECHNIQUE: Volumetric CT acquisition of the chest, abdomen and pelvis during precontrast, arterial and venous phases. Axial, coronal and sagittal reconstructions. MIP and 3-D volume rendered reformats were created at a separate workstation and reviewed. FINDINGS: AORTA AND PROXIMAL BRANCHES: There is diffuse calcified atherosclerotic disease involving the aorta and its main branches. No evidence of intramural or periaortic hematoma. There is a common origin of the innominate and left common carotid artery. Subclavian artery origin is patent. There is atherosclerotic plaque at the origins of the celiac and SMA with minimal (< 30%) stenosis. There is a right main renal artery stent which is patent. An accessory right renal artery is noted and demonstrated to be patent. Single renal left renal artery with no significant stenosis. The infrarenal abdominal aorta is ectatic. The common iliac vessels are ectatic and there is a patent right iliac stent. The arterial diameter measurements: 3.9 cm at the ascending aorta at the level of the pulmonary artery, 2.9 cm at the mid arch, 3.2 cm at the descending aorta at the level of the main pulmonary artery, 2.8 cm at the level of the aortic hiatus, 2.3 cm at the level of the renal arteries 3.1 cm just proximal to the iliac bifurcation Right pelvis: 1.1 cm at the proximal right common iliac however there is at least 50% stenosis in the distal right SHRUTI. 0.7 cm at the right external iliac artery 1.0 cm at the right common femoral artery at the level of the femoral head Left pelvis: 1.4 cm at the mid left common iliac however there is a greater than 50% stenosis just proximal to the bifurcation. 1.0 cm at the left external iliac artery 1.0 cm left femoral artery at the level of the femoral head CHEST: Lines/tubes: None. Heart and mediastinum: Calcified aortic valve in keeping with known aortic stenosis. Secondary left ventricular dilatation. Calcified mitral valve annulus. Calcified coronary arteries noted please see d etailed CTA of the coronary arteries obtained on the same day.The thyroid gland is normal. Several mediastinal lymph nodes none of which are significant by CT size criteria. There is a spiculated 1 cm nodule in the left upper lobe (series 2 image 51 ) imaging appearances are highly concerning for a neoplastic lesion. Background emphysematous changes with multiple bullae in both upper lobes. Trace of left basal pleural effusion with adjacent atelectatic changes. ABDOMEN/PELVIS: Hepatobiliary: No focal hepatic lesions. No biliary ductal dilatation. The gallbladder is unremarkable. Spleen: No splenomegaly. Pancreas: No focal masses or ductal dilatation. Adrenals: No adrenal nodules. Kidneys/Ureters: No hydronephrosis, stones, or solid mass lesions. Bilateral cortical scarring noted. Pelvic Organs/Bladder: Unremarkable. Peritoneum/Retroperitoneum: No free air or fluid. Lymph nodes: No lymphadenopathy. Vessels: Unremarkable. Patent main portal vein measuring up to 1.6 cm. GastrointestinaI Tract: Colonic diverticulosis but no evidence of diverticulitis. No gross stricturing or mass lesion. BONES AND SOFT TISSUE: Superior endplate infraction of T12 vertebral body. Background degenerative spinal changes and degenerative disc disease more marked at L4 on L5. IMPRESSION: 1. CT chest abdomen and pelvis obtained for preTAVR evaluation with appropriate arterial diameter measurements given above. 2. Calcified aortic valve and mitral valve annulus with secondary left ventricular dilatation. Calcified coronary arteries and diffuse calcified atherosclerotic disease. 3. There is a spiculated 1 cm nodule in the left upper lobe with imaging appearances highly concerning for a neoplastic lesion. 4. Incidental note of previous right main renal artery and right SHRUTI stents , bilateral renal cortical scarring, colonic diverticulosis without diverticulitis, degenerative spinal changes and T12 vertebral body superior endplate infraction. Significant incidental findings on the report. The referring team was notified via primordial. Heart/sera Heart/tan EXAM: CTA HEART WITH CONTRAST 12/17 - [facility] TAVR /2016 - Medical T[facility]R [facility] Center DATE: 12/17/2016 1:08 PM CDT Read by: Candelario Luz MD Dictated Date/time: 12/18/16 10:34 Electronically Signed by: Candelario Luz MD 12/18/16 11:02 FINAL REPORT INDICATION: - aortic stenosis. OTHER CLINICAL INFORMATION: TAVR workup, CT chest for aortic measurements. COMPARISON: None TECHNIQUE: Contrast-enhanced CT of the heart was obtained with retrospective electrocardiogram gating. Images were reformatted at 0.5 mm intervals and sent to the [employer] workstation for interpretation of both systolic and diastolic phases. Contrast: 90 mL Visipaque 320 DLP: 7551 mGy-cm Study quality: Good FINDINGS: Aortic root landmarks (dimensions determined in systolic phases): Aortic valve: Tri-fleaflet: symmetricallycalcified; bulky leaflet: Yes Aortic annulus: 29 x 22 mm; average 25 mm; area 5.0 sq cm; circumference 82 mm Ao annulus to STJ length: 21 mm Ao annulus to coronary height: Left main: 14 mm; Right: 17 mm Sinuses of Valsalva: Right 33 mm x Left 34 mm x Non-coronary 36 mm STJ: 32 x 31 mm; average 31 mm; area 7.7 sq cm; circumference 99 mm Ascending Aorta 40 mm from annulus: 37 x 35 mm Descending Aorta: 27 x 25 mm Coplanar TAVR angle: CALLE 7: CAUDAL date Coronary Arteries: This patient has a right dominant system, with normal origins of the coronary arteries. Basal septum: 17 mm Intracardiac masses: None Other cardiac findings: Pacemaker: None Artificial valve: None; Location: N/A Intracardiac closure device: None Other: Pulmonary trunk 35 mm, right pulmonary artery 28 mm, left pulmonary artery 26 mm. Enlargement of the left and right atria with 5 cm and 6 cm diameter respectively. Mitral annular calcifications present. Moderate centrilobular and symphysis changes present with apical predominance. 9 mm and 4 mm left upper lobe nodules better demonstrated on same day chest CT. IMPRESSION: 1. Trileaflet symmetrically calcified aortic valve and with aortic annular measurements as described above. 2. 9 mm and 4 mm left upper lobe nodules better demonstrated on concomitant body CT. Malignancy cannot be excluded. 3. Prominence of pulmonary arteries suggesting pulmonary hypertension, possibly secondary to advanced emphysematous changes. 4. Biatrial enlargement. Please see concomitant same day CT of the chest, abdomen, and pelvis for further details. Vital Signs Vital Sign Value Date Comments Source Respitory Rate 30 01/07/2017 [facility] Systolic (mm Hg) 99 01/07/2017 [facility] Diastolic (mm Hg) 51 01/07/2017 [facility] Respitory Rate 48 01/07/2017 [facility] Systolic (mm Hg) 94 01/07/2017 [facility] Diastolic (mm Hg) 55 01/07/2017 [facility] Respitory Rate 54 01/07/2017 [facility] Systolic (mm Hg) 90 01/07/2017 [facility] Diastolic (mm Hg) 52 01/07/2017 [facility] Temperature Oral (F) 98.5 F 01/07/2017 [facility] Temperature Oral (F) 99.2 F 01/07/2017 [facility] Temperature Oral (F) 100 F 01/07/2017 [facility] BMI Calculated 33.44 01/03/2017 [facility] Weight 102.727 01/03/2017 [facility] Height 175.26 cm 01/03/2017 [facility] Weight 102.727 01/03/2017 [facility] BMI Calculated 33.44 01/03/2017 [facility] Height 175.26 cm 01/03/2017 [facility] Height 175.26 cm 12/17/2016 [facility] Weight 100 12/17/2016 [facility] BMI Calculated 32.56 12/17/2016 [facility] Encounters Location Location Encounter Encounter Reason Attending ADM DC Status Source Details Type Number For Provider Date Date [facility] [id number] Meme 12/17 12/18 [facility] Inpatient [id number] German 01/03 01/07 SERENA Arthur /2016 [facility] Outpatient [id number] Lulu 01/24 01/25 Nghia Bustamante /2016 [facility] Procedures Procedure Code Date Perfomer Comments Source Carotid [id number] [facility] endarterectomy Carotid [id number] [facility] endarterectomy [facility]
--- OUTSIDE RECORDS SUMMARY | 2018-12-04 09:58 | XMS REPORT ---
:1940 Author Organization [facility] Address [address] [place] [address] Care Team Providers Name Role Phone Unavailable Unavailable Unavailable Payers Payer Name Policy Type Policy Number Effective Date Expiration Date Problems This patient has no known problems. Allergies, Adverse Reactions, Alerts Allergy Name Allergy Status Severity Reaction(s) Onset Inactive Treating Comments Type Date Date Clinician amitriptyline DA Active [place] 2016-12-07 00:00: 00 Medications This patient has no known medications.
[2018-12-04] MEDS ORDERED: NA CHLORIDE 0.9% 1,000 ML ONE (10:05)
[2018-12-04] MEDS ORDERED: LIDOCAINE 1% MPF 5 ML VIAL ONE (10:54)
[2018-12-04] MEDS ORDERED: PROPOFOL 200 MG/20 ML VIAL IV ONE ×2 (10:54)
== END 2018-12-04 12:15 | disposition home health service (06) ==
LOC: OR 09:45
PROVIDERS: ATTEND Internal Medicine Gastroenterology
PROC: 0DBP8ZX Excision of Rectum, Via Natural or Artificial Opening Endoscopic, Diagnostic (ICD-10-PCS; 2018-12-04)
PROC: 0DBF8ZX Excision of Right Large Intestine, Via Natural or Artificial Opening Endoscopic, Diagnostic (ICD-10-PCS; 2018-12-04)
PROC: 0DBG8ZX Excision of Left Large Intestine, Via Natural or Artificial Opening Endoscopic, Diagnostic (ICD-10-PCS; 2018-12-04)
PROC: 0DBB8ZX Excision of Ileum, Via Natural or Artificial Opening Endoscopic, Diagnostic (ICD-10-PCS; 2018-12-04)
PROC: 0DBH8ZX Excision of Cecum, Via Natural or Artificial Opening Endoscopic, Diagnostic (ICD-10-PCS; principal; 2018-12-04 11:30)
DX: D12.0 Benign neoplasm of cecum (principal); K52.9 Noninfective gastroenteritis and colitis, unspecified; K64.8 Other hemorrhoids; E11.9 Type 2 diabetes mellitus without complications; E78.5 Hyperlipidemia, unspecified; I11.0 Hypertensive heart disease with heart failure; I50.9 Heart failure, unspecified; I48.91 Unspecified atrial fibrillation; I71.4 Abdominal aortic aneurysm, without rupture; J44.9 Chronic obstructive pulmonary disease, unspecified; K21.9 Gastro-esophageal reflux disease without esophagitis; Z95.5 Presence of coronary angioplasty implant and graft; Z95.4 Presence of other heart-valve replacement; Z99.81 Dependence on supplemental oxygen; Z86.73 Personal history of transient ischemic attack (TIA), and cerebral infarction without residual deficits; Z79.84 Long term (current) use of oral hypoglycemic drugs; Z79.52 Long term (current) use of systemic steroids; Z79.01 Long term (current) use of anticoagulants; Z79.899 Other long term (current) drug therapy
CPT/HCPCS: 45380; 82962; 88305; J2704 ×2; J7030